=== PATIENT | female | born 1985 | race Two or more races ===

== ENCOUNTER → 2017-01-15 | Outpatient (CLI) | payer OTHER ==
[~2017-01-15] MED LIST: GADOBUTROL 10 ML VIAL IVP ONE
== END ==
LOC: FIMAGING 12:00
PROVIDERS: ATTEND Psychiatry & Neurology Neurology
DX: R56.9 Unspecified convulsions (principal)
CPT/HCPCS: A9585

== ENCOUNTER → 2017-01-15 | Outpatient (CLI) | payer OTHER ==
--- NOTE | 2017-01-16 11:24 | CPEEG ---
[f rep st] ELECTROENCEPHALOGRAM DATE OF STUDY: 01/15/2017 INTRODUCTION: This is a multichannel EEG using the standard international 10/ 20 system of disk electrode placement. A single EKG channel is monitored for the duration of the study. This study is undertaken for the evaluation of first -time generalized convulsion. PERTINENT MEDICATIONS: Citalopram. RECORDING TIME: 31 minutes. DESCRIPTION OF RECORDING: In the maximum alert state, the patient achieved a symmetric posterior dominant rhythm with 11 Hz alpha that attenuated with eye opening. Frontal beta activity was noted. Activating measures including photic stimulation, hyperventilation failed to activate the tracing. Drowsiness was observed as marked by waning of the background, anterior spread of alpha and slow roving eye movements. N1 sleep architecture was observed as marked by vertex waves. The EKG demonstrated normal sinus rhythm. INTERPRETATION: Normal awake through N1 sleep EEG. CLINICAL CORRELATION: No focal lateralizing epileptiform discharges. Frontal beta is likely medication effect of her SSRI. /[id number]/MODL MTDD
== END ==
LOC: FCPNEURO 09:20
PROVIDERS: ATTEND Psychiatry & Neurology Neurology
DX: R56.9 Unspecified convulsions (principal)